=== PATIENT | female | born 1970 | race Caucasian/White ===

== ENCOUNTER → 2019-01-01 15:54 | Outpatient (CLI) | payer BC, SELFPAY | PROVIDERS: PCP Nurse Practitioner Family; Visit Provider Nurse Practitioner Family | DX: M25.462 Effusion, left knee (principal) ==

== ENCOUNTER → 2019-01-02 10:25 | Outpatient (CLI) | payer BC, SELFPAY ==
--- NOTE | 2019-01-02 10:31 | XR_ITS ---
PROCEDURE: XR KNEE LT 3V Patient Age:48Y CLINICAL INDICATION: SWELLING OF LEFT KNEE JOINT Medial knee pain 1 week. With swelling. No injury. COMPARISON: [id number] KNEE-LIMITED 2 VIEWS-LT from 08/24/2013 FINDINGS: No acute fracture or dislocation.. Two screws enter anteriorly at the region of tibial tubercle reflecting the previous surgery here in 2013 but solid bone healing is now evident in the region of the proximal anterior tibia and tibial tubercle region. . There is normal mineralization.. Suggestion of developing arthritic changes at the left knee most evident at the medial compartment. Mild progressive sharpening at the medial joint margin and some borderline narrowing at the medial compartment on this nonweightbearing film noted. There is also notable joint effusion of the suprapatellar bursa suggested on today's lateral view The SQ soft tissues demonstrate of some generous varicosities along the lateral aspect of the knee and like IMPRESSION: No fracture . Joint effusion noted Suggestion early developing degenerative changes at the medial compartment, with joint effusion at suprapatellar bursa Previous surgery in the region of the tibial tubercle with good healing here. Dictated by: Padilla Copeland MD 01/02/2019 12:53 Electronically signed by Padilla Copeland MD in [place] 01/02/2019 12:53
== END ==
PROVIDERS: PCP Family Medicine; Visit Provider Nurse Practitioner Family
DX: M25.462 Effusion, left knee (principal)
CPT/HCPCS: 73562

== ENCOUNTER → 2019-02-05 13:55 | Outpatient (CLI) | payer BC, SELFPAY ==
--- NOTE | 2019-02-05 13:59 | XR_ITS ---
PROCEDURE: XR KNEE LT 4V CLINICAL INDICATION: left knee pain The COMPARISON: [id number] KNEE-LIMITED 2 VIEWS-LT from 06/22/2013 [id number] KNEE-LIMITED 2 VIEWS-LT from 07/23/2013 [id number] KNEE-LIMITED 2 VIEWS-LT from 08/24/2013 XR KNEE LT 3V from 01/02/2019 FINDINGS: There are mild osteoarthritic changes involving all 3 compartments. There has been prior tibial osteotomy. Two screws are present in the tibial tuberosity as before. There remains good alignment. Other findings:None. IMPRESSION: The prior tibial osteotomy with mild osteoarthritic change. No significant change the Dictated by: Warren Dennis MD 02/05/2019 15:44 Electronically signed by Warren Dennis MD in [place] 02/05/2019 15:44
== END ==
PROVIDERS: PCP Family Medicine; Visit Provider Orthopaedic Surgery
DX: M25.561 Pain in right knee (principal)
CPT/HCPCS: 73564

== ENCOUNTER → 2019-02-16 15:43 | Outpatient (CLI) | payer BC, SELFPAY ==
--- NOTE | 2019-02-16 15:45 | MR_ITS ---
PROCEDURE: MR KNEE LT WO CON CLINICAL INDICATION: Knee pain Medial left-sided knee pain, prior knee surgery COMPARISON: LEAJW/OLT MRI-LOW EXT ANY JOINT W/O-LT from 04/28/2013 XR KNEE LT 4V from 02/05/2019 TECHNIQUE: Routine multiplanar multi echo sequences are performed without gadolinium enhancement. FINDINGS: The the cruciate ligaments appear intact. Metallic susceptibility artifact is present from screws within the proximal tibia from tibial tubercle osteotomy. The collateral ligaments appear intact. The patellar tendon and quadriceps tendon also appear intact. There is some irregularity involving the anterior surface of the posterior horn of the medial meniscus suggesting a small horizontal tear also noted on the coronal images. The lateral meniscus has an unremarkable appearance. There is generalized edema of the knee with a small knee joint effusion. There is mild lateral subluxation of the patella. Varicosities are present in the medial aspect of the knee region. The patellar cartilage is well preserved. IMPRESSION: 1. Metallic susceptibility artifact from prior tibial tubercle transfer with some persistent mild lateral subluxation of the patella. 2. There is a small nondisplaced horizontal tear of the posterior horn of the medial meniscus suspected 3. Knee joint effusion with generalized edema about the knee. Dictated by: Warren Dennis MD 02/18/2019 11:19 Electronically signed by Warren Dennis MD in [place] 02/18/2019 11:19
== END ==
PROVIDERS: PCP Family Medicine; Visit Provider Orthopaedic Surgery
DX: M25.562 Pain in left knee (principal)
CPT/HCPCS: 73721

== ENCOUNTER → 2019-07-05 12:11 | Outpatient (CLI) | payer BC, SELFPAY ==
--- NOTE | 2019-07-05 | CA_ITS ---
APPROVED REPORT Right Lower Extremity Venous Study for DVT. 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 Indications Lower Extremity Pain: Right Lower Extremity Edema: Right History of Smoking red, angry, warm to touch right knee Vein Imaging CFV (R): compressive, spontaneous, phasic, augmentation SFJ (R): compressive, spontaneous, phasic, augmentation FEM (R): compressive, spontaneous, phasic, augmentation POP (R): compressive, spontaneous, phasic, augmentation DFV (R): compressive, spontaneous, phasic, augmentation PTV (R): compressive, spontaneous, phasic, augmentation GSV (R): compressive, spontaneous, phasic, augmentation SSV (R): compressive, spontaneous, phasic, augmentation Peroneals (R):compressive, spontaneous, phasic, augmentation GAS (R): compressive, spontaneous, phasic, augmentation Findings RLE negative for DVT/SVT Fully compressible No reflux noted Conclusion No evidence of DVT or superficial thrombophlebitis in the veins scanned of the right lower extremity. Electronically signed by : Warren Dennis MD 07/05/2019 16:07:36
== END ==
PROVIDERS: PCP Nurse Practitioner; Visit Provider Nurse Practitioner
DX: M79.661 Pain in right lower leg (principal); M79.89 Other specified soft tissue disorders
CPT/HCPCS: 93971

== ENCOUNTER → 2019-07-21 08:59 | Outpatient (CLI) | payer BC, SELFPAY ==
--- NOTE | 2019-07-21 09:03 | CA_ITS ---
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 Antibiotics 10-14 days ago. Vein Imaging CFV (R): Compressible SFJ (R): Compressible FEM (R): Compressible POP (R): Compressible DFV (R): Compressible PTV (R): Compressible GSV (R): Partially Compressible SSV (R): Not Visualized Peroneals (R):Compressible GAS (R): Compressible Findings RLE negative for DVT RLE postive for SVT in the thigh. Reflux noted in GSV. Klaudia Ellison notified. Conclusion RLE negative for DVT RLE postive for SVT in the thigh. Electronically signed by : Warren Dennis MD 07/21/2019 16:37:20
== END ==
PROVIDERS: PCP Family Medicine; Visit Provider Nurse Practitioner Family
DX: I83.11 Varicose veins of right lower extremity with inflammation (principal); M79.89 Other specified soft tissue disorders
CPT/HCPCS: 93971

== ENCOUNTER 2019-07-26 16:39 | Emergency (ER) | payer BC, SELFPAY ==
[2019-07-26 16:45] VITALS: BP 148/65; PULSE 95; RESP 18; TEMP 37; O2SAT 97; BMI 35.2
--- NOTE | 2019-07-26 16:49 | XR_ITS ---
PROCEDURE: XR CHEST PORTABLE CLINICAL HISTORY: cough/respiratory symptoms COMPARISON: No exams were available for comparison FINDINGS: The cardiomediastinal silhouette and pulmonary vascularity are within normal limits. The lungs are clear without infiltrates, suspicious nodules, or pleural effusions. There is a calcified granuloma in the left upper lobe. No acute bony findings IMPRESSION: No acute findings. Dictated by: Warren Dennis MD 07/26/2019 21:36 Electronically signed by Warren Dennis MD in [place] 07/26/2019 21:36
--- NOTE | 2019-07-26 16:53 | HMH.COUGH ---
Cough Clinic HPI - History of Present Illness Complaint:: Cough HPI:: 48-year-old white female with no known coronavirus or flu exposure who developed a dry cough over the past 24 to 48 hours, no fevers, no malaise, no myalgias, no chest pain. No GI symptoms. No rash, is concerned because of her exposure to her 7-year-old grandson. Patient notes a mild tickly spot in her throat, notes that she is not had joint pains or conjunctivitis symptoms. Home Medications: Home Medications Medication Instructions Recorded Confirmed Type sertraline 50 mg tablet 50 mg PO DAILY 02/05/19 07/26/19 History hydrOXYzine HCL [Hydroxyzine HCl] 10 mg PO DAILY 07/26/19 07/26/19 History Allergies/Adverse Reactions: Allergies Allergy/AdvReac Type Severity Reaction Status Date / Time NKDA - NO KNOWN DRUG Allergy Unknown Uncoded 02/22/19 15:35 ALLERGIES Cough Clinic Triage - Symptoms Fever History: No Chills: No Myalgia: No Nasal Drainage: No Sore Throat: No Productive Cough: No Non-productive Cough: Yes Ear or Sinus Pain: No Joint Pain: No Chest Pain: No Rash: No Shortness of Breath: No Nausea or Vomitting: No Headache: No Abdominal Pain: No Diarrhea: No - Exposure History Foreign Travel: No Direct Contact with COVID-19 Patient: No - Risk Factors Greater than 60 Years Old: No COPD: No Diabetes: No Heart Disease: No Home Oxygen Use: No Chronic Renal Disease: No Chronic Liver Disease: No Neurologic/Neurodevelopmental/intellectual disability: No Other Chronic Diseases: No If Female, currently : No Current Smoker: Yes (occas) Former Smoker: No Cough Clinic History I have reviewed the patient's past medical history: Yes Comment: osteotomy left knee - Social History Smoking Status: Former smoker Alcohol Intake: current Alcohol Intake Frequency:: holidays/special occasions only Substance Use Type: denies use Occupational Status: employed Housing: house Household Members: family Family Hx:: No significant family history ROS Obtained: Yes All systems reviewed & no additional complaints Cough Clinic Exam - General General appearance: alert, in no apparent distress - Head Head exam: atraumatic, normocephalic, normal inspection - Eye Eye exam: Present: normal appearance, PERRL, EOMI - ENT ENT exam: Present: normal exam, mucous membranes moist, TM's normal bilaterally, normal external ear exam - Expanded ENT Exam Mouth exam: Present: normal external inspection Comment: Viral appearing vesicle on the right side - Neck Neck exam: Present: normal inspection, full ROM, trachea midline. Absent: meningismus, lymphadenopathy - Chest Chest inspection: Present: normal inspection, symmetric chest wall rise. Absent: tenderness - Respiratory Respiratory exam: Present: normal lung sounds bilaterally. Absent: respiratory distress - Cardiovascular Cardiovascular exam: Present: regular rate, normal rhythm. Absent: JVD - Extremities Exam Extremities exam: Present: normal inspection, full ROM, normal capillary refill. Absent: calf tenderness - Neurological Exam Neurological exam: Present: alert, oriented X3 - Skin Skin exam: Present: warm, dry, intact, normal color - Lymphatic Lymphatic Findings: no adenopathy Cough Clinic MDM - Medical Records Medical records reviewed: Yes: I reviewed the patient's medical records. 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
[2019-07-26 17:00] VITALS: BP 148/65; PULSE 95; RESP 18; TEMP 37; O2SAT 97
== END 2019-07-26 17:08 | disposition home or self-care (01) ==
PROVIDERS: Emergency Provider Internal Medicine Adolescent Medicine; PCP Family Medicine
DX: J02.9 Acute pharyngitis, unspecified (principal); Z87.891 Personal history of nicotine dependence
CPT/HCPCS: 71045; 99201; 99213

== ENCOUNTER → 2020-01-13 13:49 | Outpatient (CLI) | payer BC, SELFPAY ==
[2020-01-14 13:56] LABS: Covid-19 Nasal PCR Sendout Lex Not Detected
== END ==
PROVIDERS: PCP Family Medicine; Visit Provider Nurse Practitioner Family
DX: Z03.818 Encounter for observation for suspected exposure to other biological agents ruled out (principal)
CPT/HCPCS: U0004

== ENCOUNTER → 2022-07-04 15:33 | Outpatient (CLI) | payer BC, SELFPAY ==
--- NOTE | 2022-07-04 15:46 | XR_ITS ---
FINAL REPORT CLINICAL HISTORY: ACUTE MIDLINE BACK PAIN FINDINGS: THORACIC SPINE Three views demonstrate no acute fracture. There is mild loss of height of the disc spaces in the upper thoracic spine. There is no malalignment. IMPRESSION: No acute process. Reviewed, Interpreted and Dictated by Wero Juarez MD Transcribed by Sayda Tim Authenticated and [facility]
--- NOTE | 2022-07-04 15:46 | XR_ITS ---
FINAL REPORT CLINICAL HISTORY: ACUTE MIDLINE BACK PAIN COMPARISON: None FINDINGS: Five views of the lumbosacral spine were obtained. There is no fracture present. Vertebrae are normal in height. There is no malalignment. There is mild anterior osteophyte formation at L3-4. There is mild disc space narrowing at L4-5 and L5-S1. IMPRESSION: Degenerative changes with no acute process. Reviewed, Interpreted and Dictated by Wero Juarez MD Transcribed by Danya Finley Authenticated and [facility]
== END ==
PROVIDERS: PCP Nurse Practitioner Family; Visit Provider Nurse Practitioner Family
DX: M54.6 Pain in thoracic spine (principal)
CPT/HCPCS: 72072; 72110

== ENCOUNTER → 2022-11-15 09:52 | Outpatient (CLI) | payer BC, SELFPAY ==
--- NOTE | 2022-11-15 10:00 | MM_ITS ---
PROCEDURE INFORMATION: Exam: MG Bilateral Screening 3D Mammography Exam date and time: 11/15/2022 10:19 AM Age: 52 years old Clinical indication: Screening examination. Family history of breast cancer in mother and in aunt; Mother's age: 54 years. TECHNIQUE: Imaging protocol: Bilateral Screening tomosynthesis and 2D mammography including computer-aided detection (CAD) when performed. COMPARISON: 1. MG DMSB DIG MAMM-SCREEN DALILA 08/31/2015 9:02 AM 2. MG DMSB DIG MAMM-SCREEN DALILA 10/22/2012 9:42 AM 3. MG DIGMAMMS MAMMOGRAM SCREEN-SHIPPER RECEIVER N/C 10/15/2006 3:09 PM 4. MG DIGMAMMS MAMMOGRAM SCREEN-SHIPPER RECEIVER N/C 08/09/2004 3:09 PM FINDINGS: MAMMOGRAPHY: Breast composition: The breasts are heterogeneously dense, which may obscure small masses. Mass: No supsicious mass. Architectural distortion: None. Calcifications: No suspicious calcifications. Asymmetric density: None. Skin thickening: None. Axillary adenopathy: None. IMPRESSION: No mammographic evidence of malignancy. Annual screening is recommended unless otherwise clinically indicated. Given the reported risk factors coupled with the patient's breast density, a breast cancer risk assessment may prove useful for further evaluation. ASSESSMENT: BI-RADS Category 1: Negative
--- NOTE | 2022-11-15 10:00 | US_ITS ---
PROCEDURE: US TRANSVAGINAL CLINICAL INDICATION: enlarged uterus and cystocele COMPARISON: No exams were available for comparison FINDINGS: Transvaginal sonographic images of the pelvis were obtained. UTERUS: 8.3 cm x 4.8 cmx 3.4 cm with a combined endometrial thickness of 2.8mm. There are several small nabothian cysts. LEFT OVARY: 1.9 cmx2 1.6 cmx1.2cm with a volume of 1.9ml.The left ovary appears atrophic. RIGHT OVARY: 2.2 cmx 2.2 cmx1.9 cm with a volume of 4.7ml. Follicle on the right ovary measuring 2.2 cm x 1.9 cm x 2.0 cm Both ovaries are seen and appear normal. Doppler flow to both ovaries are seen. There is no fluid in the cul-de-sac. IMPRESSION: 1. Anteverted uterus normal in shape and size. 2. The endometrium is thin. 3. Both ovaries are seen and appear normal. There is a 2.2 cm follicle on the right ovary. 4. No fluid in the cul-de-sac. Dictated by: Jethro Hardy MD 11/17/2022 18:52 Jethro Hardy MD in [place] 11/17/2022 18:52
== END ==
LOC: RAD 09:55
PROVIDERS: PCP Nurse Practitioner Family; Visit Provider Obstetrics & Gynecology
DX: Z12.31 Encounter for screening mammogram for malignant neoplasm of breast (principal); N85.2 Hypertrophy of uterus
CPT/HCPCS: 76830; 77063; 77067

== ENCOUNTER → 2022-12-06 15:54 | Outpatient (CLI) | payer BC, SELFPAY ==
[2022-12-06 16:26] LABS: Basophils % 0.3 % (0.1-2.0); Eosinophils # 0.2 K/mm3 (0.0-0.4); Eosinophils % 3.2 % (0.1-12.0); Hematocrit 43.1 % (37.0-47.0); Hemoglobin 13.5 g/dL (12.2-16.2); Lymphocytes # 1.9 K/mm3 (0.7-4.5); Lymphocytes % 32.2 % (10-50); Mean Corpuscular HGB Conc 31.4 g/dL (31.8-35.4); Mean Corpuscular Volume 92.3 fl (81-99); Mean Platelet Volume 9.1 fl (7.4-10.4); Monocytes # 0.3 K/mm3 (0.1-1.0); Monocytes % 4.6 % (1.7-9.3); Neutrophils # 3.5 K/mm3 (1.8-7.8); Neutrophils % 59.7 % (37.0-80.0); Platelet Count 183 K/mm3 (142-424); Red Blood Count 4.67 M/mm3 (4.20-5.40); Red Cell Distribution Width 13.1 % (11.5-17.5); White Blood Count 5.9 K/mm3 (4.8-10.8)
[2022-12-06 16:58] LABS: Chloride 106 mmol/L (98-107); Potassium 4.5 mmoL/L (3.5-5.1); Sodium 141 mmol/L (136-145)
[2022-12-06 17:01] LABS: Alanine Aminotransferase 21 U/L (12-78); Albumin Level 4.1 g/dl (3.5-5.0); Albumin/Globulin Ratio 1.7 (1.1-1.8); Alkaline Phosphatase 87 U/L (38-126); Anion Gap 11.5 mEq/L (5-15); Aspartate Amino Transferase 29 U/L (14-36); Bilirubin,Total 0.4 mg/dl (0.2-1.3); Blood Urea Nitrogen 18 mg/dl (7-17); Carbon Dioxide 28 mmol/L (22.0-30.0); Estimated Glomerular Filt Rate 88 ml/min (>60); GFR (African American) 107 ML/MIN (>60); Globulin 2.4 g/dL (1.3-3.2); Total Protein,Serum 6.5 g/dl (6.3-8.2)
[2022-12-06 17:02] LABS: Calcium 9.7 mg/dl (8.4-10.2); Glucose 84 mg/dl (74-100)
[2022-12-06 17:20] LABS: HCG,Quantitative < 2 mIU/ml (0-5.42)
== END ==
PROVIDERS: PCP Family Medicine; Visit Provider Obstetrics & Gynecology
DX: N81.11 Cystocele, midline (principal)
CPT/HCPCS: 36415; 80053; 84702; 85025

== ENCOUNTER 2022-12-11 07:37 | Day surgery (SDC) | payer BC, SELFPAY ==
[2022-12-10 12:25] VITALS: BMI 34.0
[2022-12-11] VITALS (10 sets, daily range): BP systolic 123–153; BP diastolic 63–89; PULSE 55–80; RESP 16–18; TEMP 36.3–36.8; O2SAT 93–99
--- NOTE | 2022-12-11 08:38 | EXP.ANES.CKL ---
[facility] Disclaimer: The information contained in this section may have been updated after the patient was seen, as this information can be updated by other users. Medical History Pyloric stenosis Surgical History H/O left knee surgery History of tonsillectomy Family History Other Cancer Diabetes Hypertension Social History Smoking Status: Current every day smoker tobacco type: cigarettes alcohol intake: current substance use type: denies use current occupational status: employed Travel in the last 8 weeks: None household members: family housing: house [facility] Anesthesia Checklist Patient Identification Patient Identification: Arm Band Structural Data Admitted From: Home Planned Operative Procedure/s: Hysteroscopy, D&C, Novasure Ablation, Anterior Repair Consent for Planned Operative Procedure(s) Verified: Yes Verified Documents: Surgical Consent and History and Physical NPO Status Verified Time NPO: 00:00 Additional verifications Anesthesia Reactions: No Hx Blood Transfusions: No Blood Transfusion Reaction: No Airway Assessment Mallampati Score:: Class II C-Spine Mobility Assessed: Yes TMJ Mobility Assessed: Yes Dentition: Good Dentition Neurological Assessment Level of Consciousness: Awake and Alert Anesthesia Plan Anesthesia Risk discussed: Yes Anesthesia Plan: Verified ASA Class: II Anesthesia Type: General
--- NOTE | 2022-12-11 10:41 | P.PNANES_ITS ---
[facility] Anesthesia Record Part I Anesthesia Record I Intake, IV Amount: 1,100 Hydration: Adequate Estimated blood loss (mL): 10 Urine output (mL): 0 Blood Products used (#): none Blood Pressure: 153/75 SaO2: 93 Pulse Rate: 80 Airway Patency: Patent Respiratory Rate: 16 Temperature: 98.3 F Patient is:: Drowsy and Stable Stable to PACU at:: 10:35
--- NOTE | 2022-12-11 11:11 | EXP.OP.NOTE ---
Date of procedure: 12/11/22 Pre-op Diagnosis:: 1. Grade 4 Cystocele 2. Grade 3 apical/ uterine prolapse 3. Grade 2 posterior vaginal wall defect 4. Abnormal uterine bleeding 5. Pelvic pressure Post-op Diagnosis:: 1. Grade 4 Cystocele 2. Grade 3 apical/ uterine prolapse 3. Grade 2 posterior vaginal wall defect 4. Abnormal uterine bleeding 5. Pelvic pressure Procedure performed:: 1. Hysteroscopy, dilation, and curettage 2. Endometrial NovaSure ablation 3. Anterior colporrhaphy 4. Cystoscopy Surgeon:: Haven Crowder DO Visual Stylist(s):: Daya Mayer DO CHIEF CONSTRUCTION INSPECTOR:: Maximus Salcido Anesthesia: GETA Estimated blood loss (mL): 50 Operative findings:: -EUA revealed an anteverted uterus with normal size, shape and contour. Uterine mobility. No gross adnexal masses noted. Support defects listed above -Hysteroscopy revealed normal appering tubal ostia. Atrophic endometrium. No uterine masses appreciated. Operative note:: Hysteroscopy, D&C with NovaSure ablation The patient was taken back to the OR where general anesthesia was obtained.? She was placed in the dorsal lithotomy position using yellow fin stirrups and sterilely prepped and draped in the usual fashion.? A Bovie pad and pneumatic compression devices were previously been placed. An in and out catheter was used to drain her bladder.? A timeout was performed.? A weighted speculum was used to visualize this cervix, a single-tooth tenaculum was applied to the anterior lip of the cervix and the uterus sounded to 9cm.? The cervix was dilated with Yaya dilators to accommodate a 7mm Hysteroscope. The hysterscope was inserted to the fundus, thin endometrium was noted. Images were obtained of the cavity and each tubal ostia. The hysteroscope was removed with careful attention to note the cervical length, 4cm. Endometrial curettings were obtained with a #2 sharp curette and sent to pathology for further evaluation. The Novasure device was opened, deployed, and noted to be functioning properly. The device was inserted to the fundus, set to a length of 5.5cm, and deployed to a width of 3.0cm. Cavity integrity was assessed and adequate. Total ablation time was 0:40 seconds. The Novasure device was removed from the cervical os and the hysterscope was reinserted. The endometrium was noted to be successfully ablated and an image was obtained. All instruments were removed from the vagina. Hemostasis was noted at the tenaculum sites. All counts were correct, per nursing. Anterior colporrhaphy The suburethral vaginal epithelium was grasped with Allis clamps and the area under the anterior vaginal mucosa was infiltrated with 10mLs of solution containing lidocaine with epinephrine.? A small incision was made through the suburethral vaginal epithelium approximately one cm distal to the urethra. Pickups and metzenbaum scissors were used track superiorly and inferiorly from just below the urethra to just above the cervix and the vaginal mucosa was cut in a straight line. Allis clamps were used to splay the vaginal cut edges laterally. Metzenbaum scissors were used to dissect the plane between the vaginal mucosa and the cystocele. This was further developed so that the entire cystocele was visualized and all tissues were dissected free from the underlying cystocele.? The anterior endopelvic fascia along the vesicovaginal space were then plicated with a running stitch using 2-0 Vicryl. This successfully plicated the bladder back while simultaneously bringing the lateral vaginal tissues together. The excess vaginal mucosa was trimmed and the vagina was closed with a running locking 2-0 Vicryl.? Hemostasis was excellent The patient was taken down from lithotomy position awakened from anesthesia and transported to the recovery. She will be will be discharged today after meeting all discharge criteria to include adequate pain control, tolerating p.o., and voiding independently. Patient will follow-up in the office in 1 to 2 weeks
--- NOTE | 2022-12-11 11:35 | P.PNANES_ITS ---
[facility] Anesthesia Record Part II Anesthesia Record Part II Discharge Time: 11:05 Destination: Surgical Day Care (OP Surgery) PACU nurse assessment reviewed?: Yes Patient Condition:: Good Anesthesia Complications:: None Swallowing reflex intact?: Yes Airway Patency: Patent Cyanosis?: No Blood Pressure: 123/85 SaO2: 95 Respiratory Rate: 16 Pulse Rate: 57 Temperature: 98.3 F Mental Status: Alert & Oriented Pain level:: 0 Nausea and/or vomitting:: None Intake, IV Amount: 0 Hydration: Adequate
== END 2022-12-11 11:55 | disposition home or self-care (01) ==
PROVIDERS: PCP Family Medicine; Visit Provider Obstetrics & Gynecology
PROC: (CPT 58563; principal; 2022-12-11 09:15)
DX: N81.3 Complete uterovaginal prolapse (principal); N93.9 Abnormal uterine and vaginal bleeding, unspecified; R10.2 Pelvic and perineal pain
CPT/HCPCS: 58563; 57240; 96374; J2405

== ENCOUNTER 2023-06-16 15:16 | Outpatient (CLI) | payer BC, SELFPAY ==
[2023-06-16 16:54] LABS: Basophils # 0.1 K/mm3 (0-0.2); Basophils % 0.6 % (0.1-2.0); Eosinophils # 0.1 K/mm3 (0.0-0.4); Eosinophils % 1.5 % (0.1-12.0); Hematocrit 43.7 % (37.0-47.0); Hemoglobin 14.1 g/dL (12.2-16.2); Lymphocytes # 1.4 K/mm3 (0.7-4.5); Lymphocytes % 17.6 % (10-50); Mean Corpuscular HGB Conc 32.3 g/dL (31.8-35.4); Mean Corpuscular Hemoglobin 30.3 pg (27.0-31.2); Mean Corpuscular Volume 93.8 fl (81-99); Mean Platelet Volume 10.6 fl (7.4-10.4); Monocytes # 0.4 K/mm3 (0.1-1.0); Monocytes % 5.3 % (1.7-9.3); Neutrophils # 6.1 K/mm3 (1.8-7.8); Neutrophils % 75.1 % (37.0-80.0); Platelet Count 204 K/mm3 (142-424); Red Blood Count 4.66 M/mm3 (4.20-5.40); Red Cell Distribution Width 13.5 % (11.5-17.5); White Blood Count 8.2 K/mm3 (4.8-10.8)
[2023-06-16 17:18] LABS: Chloride 107 mmol/L (98-107)
[2023-06-16 17:19] LABS: Potassium 4.8 mmoL/L (3.5-5.1); Sodium 140 mmol/L (136-145)
[2023-06-16 17:21] LABS: Alanine Aminotransferase 18 U/L (12-78); Alkaline Phosphatase 85 U/L (38-126); Aspartate Amino Transferase 27 U/L (14-36); Bilirubin,Total 0.2 mg/dl (0.2-1.3); Blood Urea Nitrogen 16 mg/dl (7-17); Estimated Glomerular Filt Rate 58 ml/min (>60); GFR (African American) 71 ML/MIN (>60)
[2023-06-16 17:22] LABS: Albumin/Globulin Ratio 1.9 (1.1-1.8); Anion Gap 6.8 mEq/L (5-15); Calcium 9.4 mg/dl (8.4-10.2); Carbon Dioxide 31 mmol/L (22.0-30.0); Globulin 2.1 g/dL (1.3-3.2); Glucose 92 mg/dl (74-100); Total Protein,Serum 6.1 g/dl (6.3-8.2)
[2023-06-16 18:09] LABS: HCG,Quantitative < 2 mIU/ml (0-5.42)
== END 2023-06-16 23:59 ==
LOC: LAB 15:16
PROVIDERS: PCP Family Medicine; Visit Provider Obstetrics & Gynecology
DX: Z01.818 Encounter for other preprocedural examination (principal); N81.4 Uterovaginal prolapse, unspecified
CPT/HCPCS: 36415; 80053; 84702; 85025; 86850

== ENCOUNTER 2023-06-18 06:17 | Observation (INO) | payer BC, SELFPAY ==
[2023-06-16 12:01] VITALS: BMI 35.2
[2023-06-18] VITALS (24 sets, daily range): BP systolic 87–201; BP diastolic 60–133; PULSE 65–97; RESP 16–20; TEMP 36.2–43; O2SAT 91–100
[2023-06-18] MEDS: LACTATED RINGERS 1000ML 1,000 ML 25 ML IV (06:34)
--- NOTE | 2023-06-18 07:10 | P.PNANES_ITS ---
[facility] Disclaimer: The information contained in this section may have been updated after the patient was seen, as this information can be updated by other users. Medical History Female bladder prolapse Abnormal uterine bleeding (AUB) Osteoarthritis Anxiety Pyloric stenosis Surgical History History of endometrial ablation History of hysteroscopy History of tonsillectomy H/O left knee surgery Family History Other Cancer Diabetes Hypertension Social History (Updated 06/18/23 @ 06:33 by Rox Steve RN) Smoking Status: Former smoker tobacco type: cigarettes alcohol intake: never substance use type: denies use current occupational status: employed Travel in the last 8 weeks: None household members: family housing: house [facility] Anesthesia Checklist Patient Identification Patient Identification: Arm Band and Family Structural Data Admitted From: Home Planned Operative Procedure/s: LAVH, BSO Verified Documents: History and Physical NPO Status Verified Time NPO: 00:00 Additional verifications Patient : No Anesthesia Reactions: No Hx Blood Transfusions: No Blood Transfusion Reaction: No Cephalosporin Allergy: No Previous Colonoscopy: No Airway Assessment Mallampati Score:: Class II C-Spine Mobility Assessed: Yes TMJ Mobility Assessed: Yes Dentition: Good Dentition Neurological Assessment Level of Consciousness: Awake, Alert, Appropriate and Follows Commands Hx Seizures: No Numbness or tingling in extremities: No Anesthesia Plan Anesthesia Risk discussed: Yes ASA Class: I Anesthesia Type: General
--- NOTE | 2023-06-18 07:27 | P.HP_ITS ---
History of Present Illness *Admission Date: 06/18/23 *Reason for visit:: Hysterectomy *History of present illness: Dipika Frazier is a pleasant 52-year-old G1, P1 () here for a laparoscopic assisted vaginal hysterectomy, bilateral salpingo oophorectomy, and cystoscopy -In November she had an anterior colporrhaphy with an ablation. She was having significant bleeding as well as her worst symptom being pelvic pressure and vaginal bulge.. The patient was having difficulty working with this and it had prolapses significantly that she was fighting with small ulcerations on her bladder. -States that she is still doing well with the anterior repair and has no problems with her bladder however she does still complain of a significant pelvic pressure. Reports that it is extremely uncomfortable in her vaginal area after working all day, sitting for a long period of time, or walking. -She works very hard at [employer] on the [email or web address] line of the [employer] and this is altering her ability to work [employer] Surgical hx: pyloric stenosis corrective surgery as a child, knee surgery in 2013 (limits her mobility slightly), tonsils. Medications: sertraline and hydroxyzine. [facility] Disclaimer: The information contained in this section may have been updated after the patient was seen, as this information can be updated by other users. Medical History Female bladder prolapse Abnormal uterine bleeding (AUB) Osteoarthritis Anxiety Pyloric stenosis Surgical History History of endometrial ablation History of hysteroscopy History of tonsillectomy H/O left knee surgery Family History Other Cancer Diabetes Hypertension Social History (Updated 06/18/23 @ 06:33 by Rox Steve RN) Smoking Status: Former smoker tobacco type: cigarettes alcohol intake: never substance use type: denies use current occupational status: employed Travel in the last 8 weeks: None household members: family housing: house Review of Systems Review of Systems Review of systems (narrative): Review of Systems Constitutional: Denies fever, chills, and sweats Eyes: Denies vision change/ pain Respiratory: Denies cough and shortness of breath Cardiovascular: Denies chest pain and lightheadedness Gastrointestinal: Denies abdominal pain. Denies nausea, vomiting. Genitourinary: Denies dysuria and incontinence. Endorses pelvic pressure. Musculoskeletal: Denies shoulder pain and back pain Neurological: Denies change in speech or headaches Meds Home Medications and Allergies Home Medications Medication Instructions Recorded Confirmed Type sertraline 100 mg tablet (Zoloft) 100 mg PO DAILY Depression 10/12/21 06/18/23 History diclofenac sodium 75 mg 75 mg PO BID PRN Pain 12/06/22 06/18/23 History tablet,delayed release hydroxyzine HCl 10 mg tablet 10 mg PO DAILY PRN Anxiety 12/06/22 06/18/23 History New Prescriptions to Start Prescriptions: Allergies Allergy/AdvReac Type Severity Reaction Status Date / Time No Known Allergies Allergy Verified 06/18/23 06:20 Exam Data for Last 24 hours Vital signs and Labs for Last 24 Hours: Temp Pulse Resp BP Pulse Ox O2 Del Method 98.4 F 65 18 146/61 H 99 Room Air 06/18/23 06:23 06/18/23 06:23 06/18/23 06:23 06/18/23 06:23 06/18/23 06:23 06/18/23 06:23 I & O for Last 24 hours: Intake & Output 06/15/23 06/16/23 06/17/23 06/18/23 23:59 23:59 23:59 23:59 Weight 225 lb Narrative: Const: healthy appearing, NAD, well developed/nourished HEENT: No oral lesions Resp: Normal respiratory effort, no audible wheezing, symmetric chest rise Cardio: Regular rate GI: Abdomen soft, non-tender, non-distended. no guarding : From op note prior to anterior repair: Grade 4 cystocele(repaired), grade 3 apical prolapse, grade 2 posterior wall defect Skin: No rash or visible lesion Neuro:No focal deficits Extrem: No visible deformity Psych: Normal mood and demeanor Constitutional Constitutional: no acute distress *Routine HEENT Exam Head: Present normocephalic Eye: Present EOMI and PERRL ENT: Present mucous membranes moist *Routine Neck Exam Neck: Present supple; Absent lymphadenopathy *Routine Respiratory Exam Respiratory: Present CTA bilaterally *Routine Cardiovascular Exam Cardiovascular: Present RRR *Routine Abdominal Exam Abdominal: Present soft and normoactive bowel sounds; Absent tenderness *Routine Rectal Exam Rectal:: deferred *Routine Genitalia Exam Genitalia:: deferred *Routine Extremities Exam Extremities: Absent cyanosis, clubbing or edema *Routine Skin Exam Skin: Present warm; Absent rash *Routine Neurological Exam Neurological: Present alert and oriented X3 Assessment and Plan *Assessment and plan (1) Uterine prolapse: Status: Acute Category: Medical Code(s): N81.4 - Uterovaginal prolapse, unspecified (2) Anxiety: Status: Acute Category: Medical Code(s): F41.9 - Anxiety disorder, unspecified Plan Discussed care with the urogynecologist for optimal outcome. Patient declined Patient has failed pessary placement She is attempted to be managed conservatively for greater than 3 years without significant improvement. Encouraged patient to pursue pelvic floor physical therapy, patient declined as she works very hard and she is very busy with her grandson who she has full custody of Plan for laparoscopic assisted vaginal hysterectomy and bilateral salpingo- oophorectomy with cystoscopy * Discussed hormone replacement postoperatively. She will receive Delestrogen in the immediate postoperative timeframe. We will discuss long-term management at her follow-up visit. We discussed the pills, patches, and injec tions today and the patient is considering which option she will use but leaning towards the pills. * TVUS from 11/15/2022:Uterus: 8.3 x 4.8 x 3.4 cm. The endometrium measures 2.8 mm. Anteverted uterus RO: 2.2 x 2.2 x 1.9 cm. RO volume: 4.7 mL. follicle measuring 2.2 cm in largest dimension. LO: 1.9 x 1.6 by 1.2 cm. LO volume: 1.9 mL. No evidence of adnexal mass or free fluid in the pelvic cavity. * The patient is requesting definitive surgical management with hysterectomy. She declines medical intervention. Reviewed the risks of major gynecologic surgery with the pt to include bleeding, infection and risk of damage to surrounding structures. I assessed the patient's understanding from her last visit and she was able to review most of the risk that I reviewed with her at the last visit. She thoroughly understands the risk of hysterectomy. Discussed risks of bleeding and pt consented to blood transfusion if deemed medically necessary. Discussed risks of infection, states she has no allergies to antibiotics and we will use ancef and metronidazole for infection ppx. Discussed risks of injury to the surrounding structures to include her bowel, bladder, ureters, and neurovascular bundles. Discussed that this could require further surgeries and prolong recovery and hospital stay. Discussed risk of fistula formation. Discussed that she would stay overnight to ensure adequate pain control and that she met all postop milestones and pt agreed. She voiced understanding of all risks. I ensured she understood with teachback method of risks. Pt desires to proceed with LAVH, bilateral salpingo-oophorectomy, Logan culdoplasty, and cystoscopy. possible SHERRON. * Pap smear: 11/06/2022: Epithelial cell abnormality atypical squamous cells of undetermined significance. Transformation zone present. Negative HPV. Negative chlamydia and gonorrhea * Endometrial biopsy on 12/13/2022: Negative for malignancy or hyperplastic changes. * CBC, type and screen ordered. * Infection prophylactic antibiotics ordered: Ancef 2g and 500 mg IV metronidazole * Postoperative course reviewed with the patient and explained that she should anticipate staying in the hospital 1-2 days until meeting all DC criteria, and pain is well controlled. Patient is very adamant that she would like discharge on the same day of her surgery. Discussed that we will assess this around 6-6 30 this evening and if she is meeting all milestones we can consider discharge today. She must be ambulating, voiding, adequate pain control
--- NOTE | 2023-06-18 07:34 | HMH.PHAINT1 ---
Pharmacy Intervention Comments: Home medication list verified via outside pharmacy and OBGYN provider note from 06/12
[2023-06-18] MEDS: CEFAZOLIN SODIUM 2 GM in 0.9 % SODIUM CHLORIDE 100 ML IV (08:30)
[2023-06-18] MEDS: METRONIDAZ/SOD CHL 500 MG/100 ML PIGGYBACK 100 MG IV (08:31)
[2023-06-18] MEDS: LIDOCAINE 1% W/EPI 1:100,000 20ML VIAL (08:31)
[2023-06-18] MEDS: ROPIVACAINE 0.5% 30ML VIAL 300 MG (08:31)
[2023-06-18] MEDS: METHYLENE BLUE 0.5% 10ML AMPULE 50 MG IV (08:32)
--- NOTE | 2023-06-18 11:38 | EXP.ANES.I ---
[facility] Anesthesia Record Part I Anesthesia Record I Intake, IV Amount: 1,100 Hydration: Adequate Estimated blood loss (mL): 200 Urine output (mL): 100 Blood Products used (#): none Blood Pressure: 126/96 SaO2: 99 Pulse Rate: 77 Airway Patency: Patent Respiratory Rate: 20 Temperature: 97.1 F Patient is:: Drowsy and Stable Stable to PACU at:: 11:26
--- NOTE | 2023-06-18 11:51 | PC.NURSE ---
RESTLESS, THRASHING ALL OVER THE BED.
--- NOTE | 2023-06-18 12:05 | P.OP_ITS ---
Date of procedure: 06/18/23 Pre-op Diagnosis:: 1. Complete uterine procidentia 2. Pelvic pressure/vaginal bulge Post-op Diagnosis:: 1. Complete uterine procidentia 2. Pelvic pressure/vaginal bulge Procedure performed:: 1. Total vaginal hysterectomy 2. Diagnostic laparoscopy with laparoscopic bilateral salpingo-oophorectomy 3. Logan culdoplasty 4. Cystoscopy Surgeon:: Haven Crowder DO Rn Night(s):: Daya Gunter DO LEAD TECHNOLOGIST IN CYTOGENETICS:: Other (Thomas Bravo) Anesthesia: GETA Estimated blood loss (mL): 200 Operative findings:: -Uterine EUA was significant for 6wk size uterus with regular borders at the fundus. Complete uterine procidentia. Well supported posterior vaginal vault. There was a noticeable cystocele however this was suspected to be secondary to the significant apical prolapse. No gross adnexal masses were appreciated on bimanual exam. -Laparoscopic exam revealed normal anatomy.? There was a small paratubal cyst on the right. No ovarian masses noted. No bowel injuries on entry. -Cystoscopy revealed brisk flow from both ureters without any injury noted. Operative note:: Pt was taken back to the OR where GETA was obtained without difficulty. SCDs were placed and found to be working. The patient was placed in dorsal lithotomy position using yellow fin stirrups. The vagina and abdomen were prepped and draped in the normal sterile fashion. An in and out catheter was used to drain the bladder and methylene blue was instilled. Weighted speculum was inserted into the vagina to visualize the cervix. A single tooth tenaculum was used to grasp the anterior lip of the cervix and an acorn uterine manipulator was placed. Top gloves were removed and attention was turned to the abdominal portion.? Local anesthetic with epinephrine was injected infraumbilically, an 11mm infraumbilical incision was made sharply. Direct entry into the abdominal cavity was obtained with laparoscopic visualization. CO2 tank was noted to be empty and greater than 15 minutes was spent replacing the tank. A intraabdominal pressure of 6mmHg was observed and CO2 gas was insufflated to create a pneumoperitoneum to a pressure of 15mmHg. The patient was placed in Trendelenburg to facilitate moving the bowel out of the operative field. A second 11mm incision was made to the left, lateral to the rectus muscles with attention to avoid vasculature. Trocar introduced under direct visualization. This process was repeated on the right. Brief abdominal exam revealed normal anatomy as described above. There were colonic adhesions to the left adnexa that were sharply taken down. The left fallopian tube was grasped at the fimbriated end. The ureters were visualized bilaterally and noted to be distal from the operative field. The LigaSure coagulation device was inserted and attempted to be used however it was faulty and would not activate. Troubleshooting methods were used and the surgical rep was contacted however the solution was unable to be remedied. The harmonic device was requested. The harmonic was used to clamp the left infundibulopelvic ligament, however I did not feel it was actively coagulating so the decision was made to transition to a total vaginal hysterectomy. Attention was turned vaginally, a weighted speculum and Rebeka were used to visualize the cervix. Two Morgan tenaculums were used to grasp the anterior and posterior ectocervix on the right and left. 10 mL of 1% lidocaine with epinephrine was injected circumferentially. A scalpel was used to make a circumferential incision at the cervicovaginal junction remaining proximal to the ectocervix given the significant uterine procidentia. A raytec was used to bluntly dissect the paracervical fascia from the cervix off the vaginal mucosa. The left uterosacral ligament was grasped with a alicia clamp, cut, and suture ligated with 0-Vicryl. This was tagged for later incorporation to the cuff. This process was repeated on the contralateral side. The anterior vaginal tissue was further dissected off the cervix. Pickups and Metzenbaum scissors were used to make the posterior colpotomy. Abdominal entry was confirmed by the presence of the ovary and omentum. 0 Vicryl was used to tag the posterior peritoneum to the posterior vaginal cuff in a running locked fashion this also assisted in hemostasis. Long weighted speculum was placed. 2 additional bites of the broad ligament on each side of the uterus were taken with the vaginal Enseal. At this time the anterior peritoneum was easily identified, it was grasped lifted and Metzenbaum scissors were used to make the anterior colpotomy. A Rebeka retractor was placed. Entry to the abdominal cavity was confirmed with the presence of omentum and the left ovary was visualized. The Enseal was used to dissect the broad ligament down the lateral aspect of the uterine body on the left side. The cardinal ligaments and uterine vessels were identified bilaterally, grasped with the Enseal, coagulated and transected. This process was repeated on the right. The utero-ovarian ligament was clamped, coagulated and transected on the left. At this time there was only a very small amount of the broad ligament and the round ligament noted to be attached on the right. The right and left side were clamped at the cornua/round ligament attachments, cut, and suture-ligated bilaterally. The uterus was free and removed from the vagina, passed off the operative field and sent to pathology for evaluation. The right fallopian tube was grasped with an Allis and this was when the right paratubal cyst was noted. Given poor visualization we decided to proceed with laparoscopic removal. 0-PDS was used to place a Logan stitch for the culdoplasty, incorporating the bilateral uterosacral ligaments. The bilateral uterosacral ligaments were noted to be weak and not substantial. The anterior peritoneum was not able to be grasped. The vaginal cuff was then closed with 0 Vicryl in a running locking fashion. Logan culdoplasty was tied to suspend the apex of the vagina. Hemostasis was noted. After changing gloves, the pneumoperitoneum was reestablished, laparoscope was placed and inspection of the cuff. The bladder was distended so an indwelling catheter was placed. Irrigation of the surgical site and suction reveal hemostasis, images obtained. Brief abdominal survey revealed a normal appearing liver and abdomen, except for previous described pelvic adhesions. Ureters were identified bilaterally and noted to be distal to the operative field. Harmonic device was used to clamp coagulate and transect the IP ligament. It was used to work down the mesosalpinx removing the fallopian tube and ovary. This process was repeated on the contralateral side. Bilateral ovaries were placed in Endo Catch bag and removed with the port. Trocar was replaced. Pelvic inspection revealed Pedicals reinspected and noted to be hemostatic.? There is noted to be a small amount of bleeding from the midline of the vaginal incision. 3 clips were placed but there is still noted to be a little bit of bleeding. I went vaginally and placed to [id number] sutures at the midline of the vaginal cuff and this obtained hemostasis. A layer of Surgicel powder was placed as well as a piece of Surgicel film for added hemostasis. The pressure in the pneumoperitoneum was dropped to a level of 6 and there still remained white in the powder and on the film. I felt that the area was hemostatic. Blaze Gill was used to close the incision that the Endo Catch bag was removed from. The abdominal incisions were closed with a deep single interrupted 0 Vicryl followed by a subcuticular 4-0 Monocryl and Dermabond was placed over the incision. Cystoscopy: The patient was removed from Trendelenburg. A 70degree cystoscope was inserted into the urethra. The bladder was distended with sterile water. The delgadillo of the bladder were inspected and noted to be intact, free of any sutures, gross masses or abnormal vasculature. Air bubble was noted at the dome of the bladder. Ureteral flow was immediately noted bilaterally. Sponge, instrument and needle counts were correct x3, per nursing. The patient was awakened from general anesthesia and transferred to the PACU in stable condition. Condition: stable Disposition: floor Specimens:: Uterine body, cervix, bilateral fallopian tubes and ovaries Complications:: None
--- NOTE | 2023-06-18 12:15 | PC.NURSE ---
Patient arrived to unit at this time- oriented to unit and poc explained. lungs cta and bowel sounds hypoactive. pulses 2+ no edema noted. scuds in place. call light within reach
[2023-06-18 12:16] LABS: Microscopic,Cath URINE MICROSCOPIC (MICROSCOPIC)
[2023-06-18] MEDS: HYDROMORPHONE 2MG/ML SYRINGE 1 MG IV (12:23)
[2023-06-18] MEDS: LACTATED RINGERS 1000ML 1,000 ML 125 ML IV ×2 (12:23→21:54)
[2023-06-18] MEDS: ESTRADIOL VALERATE 20 MG/ML VIAL 30 MG IM (12:48)
[2023-06-18 13:34] LABS: Appearance,Urine/Cath CLEAR (Clear); Blood, Urine/Cath TRACE-I (Negative); Color,Urine/Cath YELLOW (Yellow); Glucose,Urine/Cath (UA) Negative (Negative); Ketones,Urine/Cath Negative (Negative); Leukocyte Esterase,Cath Negative (Negative); Nitrate,Cath Negative (Negative); PH,Urine/Cath 7.5 (5.0-8.5); Protein,Urine/Cath Negative (Negative); Urobilinogen,Cath 0.2 EU/dl (0.2)
[2023-06-18 14:49] LABS: Bilirubin,Cath Negative (Negative)
[2023-06-18 14:50] LABS: Squamous Epithelial Ur./Cath Occasional #/hpf (0-5); WBC,Urine/Cath Occasional #/hpf (0-3)
[2023-06-18 14:51] LABS: Bacteria,Urine/Cath TRACE /lpf
[2023-06-18] MEDS: IBUPROFEN 400 MG TABLET 800 MG PO (15:34)
[2023-06-18] MEDS: ACETAMINOPHEN 500MG TAB 1000 MG PO ×2 (15:35→20:34)
--- NOTE | 2023-06-18 16:38 | PC.NURSE ---
Spoke with Dr Crowder at this time over phone. inquired about patient, report given. she v/u
--- NOTE | 2023-06-18 16:45 | PC.NURSE ---
No changes were noted on reassessment. lungs remain cta and bowel sounds hypoactive. voiding appropriately. iv infusing. lab sites un changed. call light within reach.
[2023-06-18] MEDS: CEFAZOLIN SODIUM 1 GM in 0.9 % SODIUM CHLORIDE 50 ML IV (16:51)
--- NOTE | 2023-06-18 17:45 | PC.NURSE ---
Patient up to bathroom. ambulating well. linens changed. patient is going to eat dinner. now. small amount of vaginal bleeding when patient stood up.
--- NOTE | 2023-06-18 18:57 | PC.NURSE ---
report to harpreet medrano RN
[2023-06-19] MEDS: CEFAZOLIN SODIUM 1 GM in 0.9 % SODIUM CHLORIDE 50 ML IV
[2023-06-19] MEDS: ACETAMINOPHEN 500MG TAB 1000 MG PO ×2 (03:45→08:24)
[2023-06-19] MEDS: LACTATED RINGERS 1000ML 1,000 ML 125 ML IV (03:45)
[2023-06-19 04:00] VITALS: BP 127/73; PULSE 75; RESP 17; TEMP 36.6; O2SAT 97
--- NOTE | 2023-06-19 04:03 | PC.NURSE ---
Pt has slept well most of the night and required no prn medication. Pt reports pain has been mild and at times none at all. Pt ambulates to bathroom with no assistance. Bowels active in all quads, reports no bowel movement but does feel gas. Lungs clear throughout, iv infusing well. lap sights x3 have remained unchanged throughout shift and are dry and intact. Some small areas of brusing around one lap sight. vitals have been stable throughout shift. cb remains in reach. pts intake and output has been appropriate.
[2023-06-19 06:25] LABS: Basophils % 0.3 % (0.1-2.0); Eosinophils % 0.1 % (0.1-12.0); Hematocrit 38.7 % (37.0-47.0); Hemoglobin 12.5 g/dL (12.2-16.2); Lymphocytes # 1.7 K/mm3 (0.7-4.5); Lymphocytes % 15.9 % (10-50); Mean Corpuscular HGB Conc 32.4 g/dL (31.8-35.4); Mean Corpuscular Hemoglobin 30.6 pg (27.0-31.2); Mean Corpuscular Volume 94.4 fl (81-99); Monocytes # 0.4 K/mm3 (0.1-1.0); Monocytes % 4.2 % (1.7-9.3); Neutrophils # 8.4 K/mm3 (1.8-7.8); Neutrophils % 79.5 % (37.0-80.0); Platelet Count 198 K/mm3 (142-424); Red Cell Distribution Width 13.6 % (11.5-17.5); White Blood Count 10.6 K/mm3 (4.8-10.8)
[2023-06-19] MEDS: IBUPROFEN 400 MG TABLET 800 MG PO ×2 (08:24)
[2023-06-19 08:34] VITALS: O2SAT 97
[2023-06-19 08:37] VITALS: BP 118/68; PULSE 80; RESP 18; TEMP 36.7; O2SAT 97
--- NOTE | 2023-06-19 08:45 | PC.NURSE ---
Saline lock discontinued at this time, catheter intact. Tolerated well. 2x2 gauze and coban applied to site.
--- NOTE | 2023-06-19 09:36 | EXP.ANES.II ---
[facility] Anesthesia Record Part II Anesthesia Record Part II Discharge Time: 12:01 Destination: Obstetric PACU nurse assessment reviewed?: Yes Patient Condition:: Good Anesthesia Complications:: None Swallowing reflex intact?: Yes Airway Patency: Patent Cyanosis?: No Blood Pressure: 153/92 SaO2: 98 Respiratory Rate: 18 Pulse Rate: 83 Temperature: 98.1 F Mental Status: Alert & Oriented Pain level:: 3 Nausea and/or vomitting:: None Intake, IV Amount: 0 Hydration: Adequate
[2023-06-19 09:37] VITALS: BP 153/92; PULSE 83; RESP 18; TEMP 36.7; O2SAT 98
--- NOTE | 2023-06-19 10:00 | P.DS_ITS ---
General Admission date:: 06/18/23 Discharge date: 06/19/23 HPI HPI HPI: Dipika Frazier is a pleasant 52-year-old G1, P1 () here for a laparoscopic assisted vaginal hysterectomy, bilateral salpingo oophorectomy, and cystoscopy -In November she had an anterior colporrhaphy with an ablation. She was having significant bleeding as well as her worst symptom being pelvic pressure and vaginal bulge.. The patient was having difficulty working with this and it had prolapses significantly that she was fighting with small ulcerations on her bladder. -States that she is still doing well with the anterior repair and has no problems with her bladder however she does still complain of a significant pelvic pressure. Reports that it is extremely uncomfortable in her vaginal area after working all day, sitting for a long period of time, or walking. -She works very hard at [employer] on the [employer] the [employer] and this is altering her ability to work [employer] Surgical hx: pyloric stenosis corrective surgery as a child, knee surgery in 2013 (limits her mobility slightly), tonsils. Medications: sertraline and hydroxyzine. Hospital Course Hospital Course Hospital Course: Misty Frazier is a pleasant 52-year-old postop day #1 from a total vaginal hysterectomy, diagnostic laparoscopy with bilateral salpingo-oophorectomy and cystoscopy. She is doing very well. Her hemoglobin is stable this morning. Her pain is well-controlled. She is ambulating, voiding, and tolerating p.o. without difficulty or dysuria. 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 I discussed with the patient that while this will relieve some of the pressure I am concerned for future complications to include an enterocele and vaginal vault prolapse. Patient consented to initiating pelvic floor physical therapy at 4 to 6 weeks postop. Also discussed that she may need a referral in the future to urogynecology. Patient voiced understanding. Exam Data for Last 24 hours Vital signs and Labs for Last 24 Hours: Temp Pulse Resp BP Pulse Ox O2 Del Method O2 Flow Rate 98.0 F 80 18 118/68 97 Room Air 2 06/19/23 08:37 06/19/23 08:37 06/19/23 09:37 06/19/23 08:37 06/19/23 08:37 06/19/23 08:37 06/18/23 13:15 Laboratory Results - last 24 hr 06/18/23 10:00: Urine Color Yellow, Urine Appearance Clear, Urine pH 7.5, Ur Specific [place] 1.020, Urine Protein Negative, Urine Glucose (UA) Negative, Urine Ketones Negative, Urine Blood Trace-i, Urine Nitrate Negative, Urine Bilirubin Negative, Urine Urobilinogen 0.2, Ur Leukocyte Esterase Negative, Urine RBC 5-10, Urine WBC Occasional, Ur Squamous Epith Cells Occasional, Urine Bacteria Trace 06/19/23 05:08: WBC 10.6 D, RBC 4.10 L, Hgb 12.5, Hct 38.7, MCV 94.4, MCH 30.6, MCHC 32.4, RDW 13.6, Plt Count 198, MPV 10.0, Neut % (Auto) 79.5, Lymph % (Auto) 15.9, [place] % (Auto) 4.2, Eos % (Auto) 0.1, Baso % (Auto) 0.3, Neut # (Auto) 8.4 H, Lymph # (Auto) 1.7, [place] # (Auto) 0.4, Eos # (Auto) 0.0, Baso # (Auto) 0.0 I & O for Last 24 hours: Intake & Output 06/16/23 06/17/23 06/18/23 06/19/23 23:59 23:59 23:59 23:59 Intake Total 1100 / 1100 250 / 250 Output Total 0 / 0 Balance 1100 / 1100 250 / 250 Weight 225 lb Constitutional Constitutional: no acute distress *Routine HEENT Exam Head: Present normocephalic Eye: Present EOMI and PERRL ENT: Present mucous membranes moist *Routine Neck Exam Neck: Present supple; Absent lymphadenopathy *Routine Respiratory Exam Respiratory: Present CTA bilaterally *Routine Cardiovascular Exam Cardiovascular: Present RRR *Routine Abdominal Exam Abdominal: Present soft and normoactive bowel sounds; Absent tenderness *Routine Extremities Exam Extremities: Absent cyanosis, clubbing or edema *Routine Skin Exam Skin: Present warm; Absent rash Comments: Laparoscopic incisions are intact without any erythema, drainage, or or signs of infection. The right lower quadrant has bruising around it. This is the site that the ovaries were removed from. Patient states that it is tender *Routine Neurological Exam Neurological: Present alert and oriented X3 Results Data Completed and Pending Labs on day of discharge: Labs from last 24 hours 06/19/23 06/18/23 05:08 10:00 WBC 10.6 D RBC 4.10 L Hgb 12.5 Hct 38.7 MCV 94.4 MCH 30.6 MCHC 32.4 RDW 13.6 Plt Count 198 MPV 10.0 Neut % (Auto) 79.5 Lymph % (Auto) 15.9 [place] % (Auto) 4.2 Eos % (Auto) 0.1 Baso % (Auto) 0.3 Neut # (Auto) 8.4 H Lymph # (Auto) 1.7 [place] # (Auto) 0.4 Eos # (Auto) 0.0 Baso # (Auto) 0.0 Urine Color Yellow Urine Appearance Clear Urine pH 7.5 Ur Specific [place] 1.020 Urine Protein Negative Urine Glucose (UA) Negative Urine Ketones Negative Urine Blood Trace-i Urine Nitrate Negative Urine Bilirubin Negative Urine Urobilinogen 0.2 Ur Leukocyte Esterase Negative Urine RBC 5-10 Urine WBC Occasional Ur Squamous Epith Cells Occasional Urine Bacteria Trace DS: Diagnosis Discharge Diagnosis (1) Uterine prolapse: Status: Acute Code(s): N81.4 - Uterovaginal prolapse, unspecified Problem details: Postop day #1 -Doing very well. Vital signs stable. Labs appropriate and stable. -Desires discharge home -Follow-up at 2 and 6 weeks -Routine discharge instructions reviewed with the patient in detail and she voiced understanding. All questions were addressed to her satisfaction. (2) Anxiety: Status: Acute Code(s): F41.9 - Anxiety disorder, unspecified Meds Home Medications and Allergies Home Medications Medication Instructions Recorded Confirmed Type sertraline 100 mg tablet (Zoloft) 100 mg PO DAILY Depression 10/12/21 06/18/23 History diclofenac sodium 75 mg 75 mg PO BID PRN Pain 12/06/22 06/18/23 History tablet,delayed release hydroxyzine HCl 10 mg tablet 10 mg PO DAILY PRN Anxiety 12/06/22 06/18/23 History acetaminophen 500 mg tablet 500 mg PO Q6H PRN fever #30 tabs 06/19/23 Rx oxycodone 5 mg tablet 5 mg PO Q8H PRN pain #20 tabs 06/19/23 Rx oxycodone 5 mg tablet 5 mg PO Q8H PRN pain #5 tabs 06/19/23 Rx sennosides 8.6 mg tablet (Senna 8.6 mg PO BIDP PRN Constipation 06/19/23 Rx Lax) #60 tabs simethicone 125 mg tablet 125 mg PO DAILY PRN abdominal 06/19/23 Rx distention #60 tabs New Prescriptions to Start Prescriptions: acetaminophen Haven Crowder oxycodone Haven Crowder oxycodone Haven Crowder sennosides [Senna Lax] Haven Crowder simethicone Haven Crowder Allergies Allergy/AdvReac Type Severity Reaction Status Date / Time No Known Allergies Allergy Verified 06/18/23 06:20 Discharge Plan Disposition Patient Disposition: Home, Self-Care Condition: Good Follow up Plan Follow up with: Haven Crowder DO [Staff Physician] - 07/08/23 8:45 am Prescriptions/Medication Reconciliation: New acetaminophen 500 mg tablet 500 mg PO Q6H PRN (Reason: fever) Qty: 30 3RF sennosides [Senna Lax] 8.6 mg Tablet 8.6 mg PO BIDP PRN (Reason: Constipation) Qty: 60 2RF simethicone 125 mg tablet 125 mg PO DAILY PRN (Reason: abdominal distention) Qty: 60 2RF oxycodone 5 mg tablet 5 mg PO Q8H PRN (Reason: pain) Qty: 5 0RF oxycodone 5 mg tablet 5 mg PO Q8H PRN (Reason: pain) Qty: 20 0RF Continued sertraline [Zoloft] 100 mg tablet 100 mg PO DAILY diclofenac sodium 75 mg tablet,delayed release (DR/EC) 75 mg PO BID PRN (Reason: Pain) hydroxyzine HCl 10 mg tablet 10 mg PO DAILY PRN (Reason: Anxiety) Problem Reconciliation Problems Reviewed?: Yes Patient Discharge Instructions ACTIVITY: Limited activity DIET: continue same diet and regular diet Additional Instructions: Post op plan You had a total vaginal hysterectomy and laparoscopic bilateral salpingo- oophorectomy. He also had a cystoscopy.. This means that your uterus, cervix, ovaries and fallopian tubes were removed. We also used a camera to look in your bladder after the surgery and there were no problems with your bladder wall or ureters. The top of your vagina is closed with dissolvable sutures. You will follow-up in office for a postop visit at 2 weeks and at 6 weeks. At your 6- week postop appointment you will have a pelvic exam to ensure your cuff is healing well. Activity: - No lifting more than 10 lbs for 6 weeks. - No driving while you are taking narcotic pain medication. - You have 3 incisions on your abdomen that are closed with stitches and surgic al glue. The glue should come off within 2 weeks. You can scrub gently in the shower Wound care - You have surgical glue covering your incision. This will come off on its own within 1-2 weeks - You have stitches under your skin which will dissolve over the next 4-6 weeks as your body heals - Keep your wound clean and dry, ok to wash with soap and water but pat thoroughly dry Medications: -Acetaminophen (Tylenol) for pain. Please take 500 mg to 1000 mg every 4-6 hours scheduled for the first 2-3 days as this will help control your pain. Please do not take more than 4000 mg in 1 day - Oxycodone (a narcotic pain medication) use the narcotic pain medication for breakthrough or severe pain. You will want to stop the narcotic pain medication first. Narcotic pain medication can be habit forming so please only use this medication if you need it. - Senna (a stool softener) use this medication for constipation as needed. Narcotics can increase your risk for constipation - Simethicone: a gas medication for bloating and gas pain you may experience in the next 1-2 weeks. Please call the office or return to the ER if you have any of the followin. bleeding more than 1 pad an hour for 2 hours 2. pain that does not respond to your narcotic pain medication 3. dizziness or lightheadedness such that you lose consciousness 4. abnormal discharge that looks like pus from your incisions Questions or concerns: It is my privilege to be your doctor. Please let me know if you have other questions or concerns. Haven Crowder DO [facility] [place], [place] [address] Patient Instructions: Hysterectomy -- Laparoscopic Surgery, DI for Vaginal Hysterectomy Providers Primary Care Provider: Benjamin Martin Admit Provider: Haven Crowder Attending Provider: Haven Crowder
== END 2023-06-19 11:33 | disposition home or self-care (01) ==
LOC: OB 06:17
PROVIDERS: Admitting Provider Obstetrics & Gynecology; PCP Family Medicine; Visit Provider Obstetrics & Gynecology
PROC: 0UT9FZZ Resection of Uterus, Via Natural or Artificial Opening With Percutaneous Endoscopic Assistance (ICD-10-PCS; CPT 58552; principal; 2023-06-18 07:30)
DX: N81.3 Complete uterovaginal prolapse (principal); F41.9 Anxiety disorder, unspecified; R10.2 Pelvic and perineal pain
CPT/HCPCS: 58552; 36415; 81001; 85025; 96374; J3490; G0378; J0690; J2405

== ENCOUNTER 2023-07-08 09:07 | Outpatient (CLI) | payer BC, SELFPAY ==
[2023-07-08 09:41] LABS: Basophils % 0.4 % (0.1-2.0); Eosinophils # 0.2 K/mm3 (0.0-0.4); Eosinophils % 2.1 % (0.1-12.0); Hematocrit 37.2 % (37.0-47.0); Hemoglobin 11.9 g/dL (12.2-16.2); Lymphocytes # 1.4 K/mm3 (0.7-4.5); Lymphocytes % 17.2 % (10-50); Mean Corpuscular HGB Conc 32.1 g/dL (31.8-35.4); Mean Corpuscular Hemoglobin 29.6 pg (27.0-31.2); Mean Corpuscular Volume 92.3 fl (81-99); Mean Platelet Volume 9.8 fl (7.4-10.4); Monocytes # 0.5 K/mm3 (0.1-1.0); Monocytes % 6.3 % (1.7-9.3); Neutrophils # 5.9 K/mm3 (1.8-7.8); Neutrophils % 74.1 % (37.0-80.0); Platelet Count 204 K/mm3 (142-424); Red Blood Count 4.03 M/mm3 (4.20-5.40); Red Cell Distribution Width 13.2 % (11.5-17.5)
== END 2023-07-08 23:59 ==
LOC: LAB 09:08
PROVIDERS: PCP Family Medicine; Visit Provider Obstetrics & Gynecology
DX: R55 Syncope and collapse (principal)
CPT/HCPCS: 36415; 85025

== ENCOUNTER 2024-08-13 14:53 | Outpatient (CLI) | payer BC, SELFPAY ==
[2024-08-13 15:55] LABS: Basophils % 0.5 % (0.1-2.0); Eosinophils # 0.2 Kmm3 (0.0-0.4); Eosinophils % 3.1 % (0.1-12.0); Hematocrit 38.1 % (37.0-47.0); Immature Granulocytes # 0.01 10^3uL; Immature Granulocytes % 0.2 %; Lymphocytes # 1.4 K/mm3 (0.7-4.5); Lymphocytes % 23.7 % (10-50); Mean Corpuscular HGB Conc 31.5 g/dL (31.8-35.4); Mean Corpuscular Hemoglobin 29.2 pg (27.0-31.2); Mean Corpuscular Volume 92.7 fl (81-99); Mean Platelet Volume 12.8 fl (7.4-10.4); Monocytes # 0.6 K/mm3 (0.1-1.0); Monocytes % 9.5 % (1.7-9.3); Neutrophils # 3.6 K/mm3 (1.8-7.8); Nucleated Red Blood Cells # 0 10^3/uL; Nucleated Red Blood Cells % 0 %; Platelet Count 196 K/mm3 (142-424); Red Blood Count 4.11 M/mm3 (4.20-5.40); Red Cell Distribution Width 12.7 % (11.5-17.5); Red Cell Distribution Width-SD 43.1 fL; White Blood Count 5.8 K/mm3 (4.8-10.8)
[2024-08-13 17:00] LABS: Alanine Aminotransferase 17 U/L (12-78); Albumin Level 3.9 g/dl (3.5-5.0); Albumin/Globulin Ratio 1.8 (1.1-1.8); Alkaline Phosphatase 83 U/L (38-126); Anion Gap 9.6 mEq/L (5-15); Aspartate Amino Transferase 31 U/L (14-36); Bilirubin,Total 0.3 mg/dl (0.2-1.3); Blood Urea Nitrogen 21 mg/dl (7-17); Calcium 8.8 mg/dl (8.4-10.2); Carbon Dioxide 27 mmol/L (22.0-30.0); Chloride 105 mmol/L (98-107); Chol/HDL Ratio 2.4 (1-3.5); Cholesterol 147 mg/dl (140-200); Estimated Glomerular Filt Rate 105 ml/min (>60); GFR (African American) 127 ML/MIN (>60); Globulin 2.2 g/dL (1.3-3.2); Glucose 67 mg/dl (74-100); HDL Cholesterol 62 mg/dl (40-60); Potassium 4.6 mmoL/L (3.5-5.1); Sodium 137 mmol/L (136-145); Total Protein,Serum 6.1 g/dl (6.3-8.2); Triglycerides 88 mg/dl (30-150); Uric Acid 5.1 mg/dl (2.5-6.2); VLDL Cholesterol 18 mg/dL (0-40)
[2024-08-13 17:12] LABS: 25-OH Vitamin D, Total 16.2 ng/mL (30-100); Direct LDL Cholesterol 74.43 mg/dL (100-129)
[2024-08-13 17:16] LABS: Erythrocyte Sedimentation Rate 15 mm/hr (0-30); Free T4 (Free Thyroxine) 1.22 ng/dl (0.78-2.19)
[2024-08-13 17:31] LABS: Thyroid Stimulating Hormone 0.44 uIU/mL (0.465-4.68)
[2024-08-14 11:28] LABS: Triiodothyronine (T3) Free 3.5 pg/mL (2.0-4.4)
[2024-08-15 08:13] LABS: RA Latex Turbid. <10.0 IU/mL (<14.0)
[2024-08-17 14:13] LABS: Antinuclear Antibodies, IFA Negative (.)
== END 2024-08-13 23:59 | disposition home or self-care (01) ==
LOC: LAB.DROPOF 08-16 14:53
PROVIDERS: PCP Nurse Practitioner Family; Visit Provider Nurse Practitioner Family
DX: Z13.220 Encounter for screening for lipoid disorders (principal); R63.5 Abnormal weight gain; M25.50 Pain in unspecified joint; E55.9 Vitamin D deficiency, unspecified; Z68.37 Body mass index [BMI] 37.0-37.9, adult
CPT/HCPCS: 80053; 80061; 82306; 84439; 84443; 84481; 84550; 85025; 85651; 86038; 86431

== ENCOUNTER 2024-08-19 16:52 | Outpatient (CLI) | payer BC, SELFPAY ==
--- NOTE | 2024-08-19 17:00 | MM_ITS ---
PROCEDURE INFORMATION: Exam: MG Bilateral Screening 3D Mammography Exam date and time: 08/19/2024 4:57 PM Age: 53 years old Clinical indication: Screening. Her mother and maternal aunt breast cancer. TECHNIQUE: Imaging protocol: Bilateral Screening tomosynthesis and 2D mammography including computer-aided detection (CAD) when performed. COMPARISON: 1. MG MM DIG SCREENING MAMM BI W/CAD 11/15/2022 10:19 AM 2. MG DMSB DIG MAMM-SCREEN DALILA 08/31/2015 9:02 AM 3. MG DMSB DIG MAMM-SCREEN DALILA 10/22/2012 9:42 AM 4. MG DIGMAMMS MAMMOGRAM SCREEN-MASSAGE COORDINATOR N/C 10/15/2006 3:09 PM FINDINGS: MAMMOGRAPHY: Breast composition: The breasts are heterogeneously dense, which may obscure small masses. Mass: No suspicious mass. Architectural distortion: None. Calcifications: No suspicious calcifications. Asymmetric density: No developing asymmetry. Skin thickening: None. Axillary adenopathy: None. IMPRESSION: No mammographic evidence of malignancy. Annual screening is recommended unless otherwise clinically indicated. ASSESSMENT: BI-RADS Category 1: Negative.
== END 2024-08-19 23:59 | disposition home or self-care (01) ==
LOC: RAD 16:53
PROVIDERS: PCP Nurse Practitioner Family; Referring Provider Nurse Practitioner Family; Visit Provider Nurse Practitioner Family
DX: Z12.31 Encounter for screening mammogram for malignant neoplasm of breast (principal); R92.313 Mammographic fatty tissue density, bilateral breasts
CPT/HCPCS: 77063; 77067

== ENCOUNTER 2024-10-05 16:00 | Outpatient (CLI) | payer BC, SELFPAY ==
--- NOTE | 2024-10-05 16:03 | XR_ITS ---
FINAL REPORT CLINICAL HISTORY: Severe BILAT hip pain, ONE VIEW PELVIS ONLY FINDINGS: SINGLE VIEW PELVIS: A single view of the pelvis was obtained. There is no acute fracture or dislocation. There are hypertrophic changes at the acetabular margins, right greater than left. There is moderately advanced right hip joint space narrowing. Vizualized joint spaces are normally aligned. Soft tissues are unremarkable. IMPRESSION: Moderately advanced right hip joint space narrowing without acute bony abnormality. Reviewed, Interpreted and Dictated by Wero Juarez MD Transcribed by Hallie Mcclellan Authenticated and [facility]
== END 2024-10-05 23:59 | disposition home or self-care (01) ==
PROVIDERS: PCP Internal Medicine; Visit Provider Internal Medicine
DX: M25.851 Other specified joint disorders, right hip (principal); M25.552 Pain in left hip
CPT/HCPCS: 72170